=== PATIENT | male | born 1995 | race Caucasian/White ===

== ENCOUNTER 2023-04-16 18:14 | Emergency (ER) | payer OTHER ==
[~2023-04-16] VITALS: Ht 167.6 cm; Wt 75.0 kg
[2023-04-16] MEDS: PERCOCET 5MG/325MG TAB PO ONE (22:42)
[2023-04-16 22:46] VITALS: BP 124/82; TEMP 97.7; O2SAT 99
== END 2023-04-16 22:47 | disposition home or self-care (01) ==
LOC: M ED 18:14
DX: S86.001A Unspecified injury of right Achilles tendon, initial encounter (principal); W00.0XXA Fall on same level due to ice and snow, initial encounter; F17.200 Nicotine dependence, unspecified, uncomplicated; F10.10 Alcohol abuse, uncomplicated; Y92.410 Unspecified street and highway as the place of occurrence of the external cause; Y93.89 Activity, other specified; Y99.9 Unspecified external cause status; Z88.1 Allergy status to other antibiotic agents